=== PATIENT | female | born 1965 | race Caucasian/White ===

== ENCOUNTER 2016-03-17 23:09 | Emergency (ER) | payer SELFPAY ==
[2016-03-17] MEDS ORDERED: Magnesium Sulfate 2 GM/100 ML BAG ONE (23:53)
[2016-03-18] MEDS ORDERED: diphenhydrAMINE HCl 50 MG/ML 1 ML VIAL ONE (00:08)
[2016-03-18] MEDS ORDERED: Ketorolac Tromethamine 30 MG/ML VIAL ONE (00:08)
[2016-03-18] MEDS ORDERED: Metoclopramide HCl 10 MG/2 ML VIAL ONE (00:08)
--- NOTE | 2016-03-18 01:40 | ERRECORD ---
[facility] EMERGENCY RECORD HPI HEADACHE (23:36 DHAM) CHIEF COMPLAINT: Patient presents for evaluation of migraine headache. HISTORIAN: History provided by patient, History provided by patient's spouse, . LOCATION: Symptoms are localized, most severe in the left orthodoxy, this is where her migraines usually are located. QUALITY: Pain is dull in nature, described as throbbing. SEVERITY: Maximum severity of pain rated as 9/10. TIME COURSE: Gradual onset of symptoms, x 24 hours, There has been no change in the patient's symptoms over time. ASSOCIATED WITH FEMALE: Associated with aura, for 1 hour, currently resolved, No associated chills, No associated fever, No associated focal weakness, No posterior circulation symptoms present, Not associated with , No associated neck pain, No associated trauma, No associated tingling, No associated numbness, No associated upper respiratory infection, seizure today that lasted about a minute. She did not fall. She was able to walk down the [place] with the assistance of her during her "seizure" where she was shaking both arms and both legs. She has been out of her phenobarbital for about a week or two. her usual aura is flashing lights across her vision. EXACERBATED BY: Patient's condition exacerbated by light. RELIEVED BY: Patient's condition relieved by botox injections had been helping. RISK FACTORS: Subarachnoid hemorrhage risk factors, not applicable for this patient, Subarachnoid hemorrahage risk factor analysis completed. ROS (23:47 DHAM) CONSTITUTIONAL: Historian denies chills, denies fever, denies lethargy. EYES: Historian denies eye pain, denies eye redness, denies eye discharge, denies itching, reports photophobia, reports vision changes. blurry vision to the left eye which is her usual with her migraines for many years. ENT: Historian denies drooling, denies rhinorrhea, denies sore throat, denies stridor, denies voice changes. CARDIOVASCULAR: Historian denies chest pain, no radiation, Historian denies edema, denies syncope, denies palpitations. RESPIRATORY: Historian denies cough, denies shortness of breath, denies sputum. GI: Historian denies abdominal pain, denies appetite changes, denies diarrhea, reports nausea, denies vomiting. GENITOURINARY FEMALE: Historian denies dysuria, denies frequency. MUSCULOSKELETAL: Historian denies back pain, denies fall, denies injury, denies neck pain. SKIN: Historian denies rash, denies skin changes, denies skin lesions. NEUROLOGIC: Historian denies focal weakness, reports &a-1R&a+25V*p+0X*k0529X*c202B*c15G*c2P*p-0X&a-25V&a+1R Name: Olga Hernandez : 1965 F50 MedRec: [id number] AcctNum: [id number] Prepared: WedMar 18, 2016 08:57 by Interface Page 1 of 6 pMD [facility] EMERGENCY RECORD headache, denies mental status changes, denies paralysis, denies paresthesias, reports seizures, denies sensory changes, denies speech changes. 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 "seizures" off and on for many years. ENDOCRINE: Historian denies polydipsia, denies polyuria. HEMO/LYMPHATIC: Historian denies abnormal blood clotting, denies easy bruising. ALLERGIC/IMMUNOLOGIC: Historian denies eczema, denies hives. PSYCHIATRIC: Historian reports anxiety. KNOWN ALLERGIES CLINDAMYCIN CODEINE CONTRAST DYE ERRYTHROMYCIN KLOR-CON PENICILLIN SULFUR TETRACYCLINE THORAZINE URSODOL VALIUM VENLAFAXINE CURRENT MEDICATIONS Imitrex: TABLET : Strength - 100 mg : ORAL Patient Dose: 100 mg Oral As Needed.TAKE 1 AT ONSET OF MERCHANT, REPEAT IN 2 HOURS. (WedMar 18, 2016 00:04 AADK) albuterol: AEROSOL (GRAM) : Strength - 90 mcg : INHALATION Patient Dose: 2 puff(s) Inhaler every 4 hours. (WedMar 18, 2016 00:05 AADK) albuterol sulfate: VIAL, NEBULIZER (ML) : Strength - 2.5 mg/3 mL (0.083 %) : INHALATION Patient Dose: 1 ea Nebulize every 4 hours. (WedMar 18, 2016 00:05 AADK) tiZANidine: CAPSULE : Strength - 4 mg : ORAL Patient Dose: 1 tab(s) Oral once a day (at bedtime). (WedMar 18, 2016 00:06 AADK) ALPRAZolam: TABLET : Strength - 1 mg : ORAL Patient Dose: 1 tab(s) Oral 3 times a day. (WedMar 18, 2016 00:07 AADK) propranolol: CAPSULE, EXTENDED RELEASE 24HR : Strength - 80 mg : ORAL Patient Dose: 2 cap(s) Oral once a day. (WedMar 18, 2016 00:07 AADK) &a-1R&a+25V*p+0X*j7985K*c202B*c15G*c2P*p-0X&a-25V&a+1R Name: Olga Hernandez : 1965 F50 MedRec: [id number] AcctNum: [id number] Prepared: WedMar 18, 2016 08:57 by Interface Page 2 of 6 pMD [facility] EMERGENCY RECORD primidone: TABLET : Strength - 50 mg : ORAL Patient Dose: 50 mg Oral once a day (at bedtime). (WedMar 18, 2016 00:08 AADK) nabumetone: TABLET : Strength - 500 mg : ORAL Patient Dose: 1 tab(s) Oral 2 times a day. (WedMar 18, 2016 00:08 AADK) topiramate: TABLET : Strength - 100 mg : ORAL Patient Dose: 1 tab(s) Oral 2 times a day. (WedMar 18, 2016 00:08 AADK) levETIRAcetam: TABLET : Strength - 500 mg : ORAL Patient Dose: 1 tab(s) Oral 2 times a day. (WedMar 18, 2016 00:09 AADK) promethazine: TABLET : Strength - 25 mg : ORAL Patient Dose: 25 mg Oral 3 times a day. (WedMar 18, 2016 00:10 AADK) gabapentin: CAPSULE : Strength - 300 mg : ORAL Patient Dose: 1 cap(s) Oral 4 times a day. (WedMar 18, 2016 00:10 AADK) PHENobarbital: TABLET : Strength - 64.8 mg : ORAL Patient Dose: 2 tab(s) Oral 2 times a day. (WedMar 18, 2016 00:11 AADK) carvedilol: TABLET : Strength - 25 mg : ORAL Patient Dose: 25 mg Oral 2 times a day. (WedMar 18, 2016 00:11 AADK) zolpidem: TABLET : Strength - 10 mg : ORAL Patient Dose: 1 tab(s) Oral once a day (at bedtime). (WedMar 18, 2016 00:11 AADK) citalopram: TABLET : Strength - 40 mg : ORAL Patient Dose: 40 mg Oral once a day. (WedMar 18, 2016 00:12 AADK) traMADol: TABLET : Strength - 50 mg : ORAL Patient Dose: 1 tab(s) Oral 3 times a day. (WedMar 18, 2016 00:12 AADK) cloNIDine HCl: TABLET : Strength - 0.3 mg : ORAL Patient Dose: 0.3 mg Oral 3 times a day. (WedMar 18, 2016 00:12 AADK) torsemide: TABLET : Strength - 20 mg : ORAL &a-1R&a+25V*p+0X*m6267O*c202B*c15G*c2P*p-0X&a-25V&a+1R Name: Olga Hernandez : 1965 F50 MedRec: [id number] AcctNum: [id number] Prepared: WedMar 18, 2016 08:57 by Interface Page 3 of 6 pMD [facility] EMERGENCY RECORD Patient Dose: 2 tab(s) Oral 3 times a day. (WedMar 18, 2016 00:13 AADK) Delta 3: CAPSULE : ORAL Patient Dose: 2 cap(s) Oral 2 times a day. (WedMar 18, 2016 00:13 AADK) Cozaar: TABLET : Strength - 100 mg : ORAL Patient Dose: 1 tab(s) Oral once a day. (WedMar 18, 2016 00:14 AADK) atorvastatin: TABLET : Strength - 40 mg : ORAL Patient Dose: 40 mg Oral once a day. (WedMar 18, 2016 00:14 AADK) Nitrostat: TABLET, SUBLINGUAL : Strength - 0.4 mg : SUBLINGUAL Patient Dose: 0.4 mg Sublingual As Needed. (WedMar 18, 2016 00:15 AADK) VITAL SIGNS VITAL SIGNS: BP: 203/101, Pulse: 61, Resp: 20, Temp: 97.7 (Oral), Pain: 8, O2 sat: 96 on Room Air, Time: 03/17/2016 23:20. (23:20 MVIL) BP: 153/85, Pulse: 56, Resp: 20, O2 sat: 93 on Room Air, Time: 03/18/2016 00:31. (WedMar 18, 2016 00:31 MVIL) Pain: 7, Time: 03/18/2016 01:20. (WedMar 18, 2016 01:20 AADK) PHYSICAL EXAM (23:53 DHAM) CONSTITUTIONAL: Vital Signs Reviewed, Patient afebrile, Pulse normal, Blood pressure elevated, Respiratory rate normal, Normal pulse oximetry, Patient appears non toxic, Patient appears in mild pain, Patient alert and oriented to person, place and time, Nursing notes reviewed. HEAD: Head exam included findings of head atraumatic, normocephalic. EYES: Fundoscopic exam normal, Eye exam included findings of eyelids normal to inspection, Pupils equally round and reactive to light, Extraocular muscles intact, Conjunctiva normal, Sclera normal, Eye exam included findings of anterior chamber clear. ENT: Ear exam normal, external ear normal, tympanic membranes normal, no foreign body, no drainage, no bleeding, hearing normal, Nose exam normal, no nasal deformity, no bleeding from nares, no bleeding from hypopharynx, no foreign body visualized, no septal hematoma, no septal necrosis, No turbinate mucosa discharge, Pharynx exam normal, not injected, no swelling, symmetrical, Uvula exam normal, midline, no edema, Tonsil exam normal, not enlarged, no exudates, Mouth exam normal, mucous membranes moist, no drooling, no lesions, no lacerations, no tongue elevation, teeth normal, left side of her mouth droops downward and says that is normal for her. she has normal muscle tone in all facial muscles but can not elevate eyebrows on either side (likely due to her botox that she gets in the &a-1R&a+25V*p+0X*i6046L*c202B*c15G*c2P*p-0X&a-25V&a+1R Name: Olga Hernandez : 1965 F50 MedRec: [id number] AcctNum: [id number] Prepared: WedMar 18, 2016 08:57 by Interface Page 4 of 6 pMD [facility] EMERGENCY RECORD forehead. NECK: no meningeal signs, Neck exam included findings of normal range of motion, Trachea midline, Thyroid normal, no meningeal signs, no cervical adenopathy, no tenderness, no contusions, no ecchymosis. RESPIRATORY CHEST: Respiratory exam included findings of no respiratory distress, Breath sounds clear, No wheezing, No rales, No rhonchi, Breath sounds not diminished, Chest exam included findings of chest movement symmetrical. CARDIOVASCULAR: Cardiovascular exam included findings of heart rate regular rate and rhythm, Heart sounds normal, normal S1, normal S2, no murmurs, no rub, no gallop. ABDOMEN FEMALE: Abdominal exam included findings of abdomen nontender, Bowel sounds normal, Liver normal, Spleen normal, no distension, no pulsatile masses, no peritoneal signs, no ventral hernia. BACK: Back exam normal. UPPER EXTREMITY: Upper extremity exam normal, Upper extremity exam included findings of inspection normal, no abrasions, no contusions, no deformity, no lacerations, Range of motion normal, Motor strength normal, Sensation intact, Brachial pulse normal, Radial pulse normal. LOWER EXTREMITY: Lower extremity exam normal, Lower extremity exam included findings of inspection normal, no abrasions, no contusions, no deformity, no lacerations, Range of motion normal, Motor strength normal, Sensation intact, Pedal pulse normal, Pancho's negative, no edema, no calf tenderness. NEURO: Neuro exam findings include patient oriented to person, place and time, Speech normal, Gait normal, [place] coma scale 15, Memory normal, Cranial nerves intact, Deep tendon reflexes normal, no focal motor deficits, no focal sensory deficits. see heent above. Hints neg. nihss is o and pt ambulates normally. SKIN: Skin exam included findings of skin warm, dry, and normal in color, no rash. LYMPHATIC: Lymphatic exam normal, Lymphatic exam included findings of cervical nodes normal. PSYCHIATRIC: Psychiatric exam included findings of patient oriented to person place and time, Affect, flat, Insight normal, Remote memory normal, Recent memory normal, Concentration normal, pt seems anxious and circuitous in her answers. memory seems intact. MEDICATION ADMINISTRATION SUMMARY Drug Name: *Benadryl injection, Dose Ordered: 50 mg, Route: IV Push, Status: Given, Time: 00:14 03/18/2016, Drug Name: *Toradol injection, Dose Ordered: 30 mg, Route: IV Push, Status: Given, Time: 00:14 03/18/2016, Drug Name: *Reglan injection, Dose Ordered: 10 mg, Route: IV Push, Status: Given, Time: 00:14 03/18/2016, &a-1R&a+25V*p+0X*[id number]*c202B*c15G*c2P*p-0X&a-25V&a+1R Name: Olga Hernandez : 1965 F50 MedRec: [id number] AcctNum: [id number] Prepared: WedMar 18, 2016 08:57 by Interface Page 5 of 6 pMD [facility] EMERGENCY RECORD Drug Name: *magnesium sulfate injection, Dose Ordered: 2 g, Route: IV Piggy Back, Status: Given, Time: 23:56 03/17/2016, *Additional information available in notes, Detailed record available in Medication Service section. DOCTOR NOTES (WedMar 18, 2016 01:09 DHAM) TEXT: Pt says that her headache "is easing" but still relates a pain scale of 7/10. her mental status is sharp. will d/c home and have her fill her propranolol and topimax tomorrow to prevent migraines. she tells me she is having trouble paying for her meds but she has refills of all of her meds at the pharmacy. PROBLEM LIST No recorded problems DIAGNOSIS (WedMar 18, 2016 01:11 DHAM) FINAL: PRIMARY: Migraine (unspecified). PRESCRIPTION No recorded prescriptions DISPOSITION PATIENT: Disposition Type: Discharge, Disposition: *Discharge Home. (WedMar 18, 2016 01:11 DHAM) Patient left the department. (WedMar 18, 2016 01:24 MVIL) [place]: AADK=MISA Ortiz, Linette BARRIGA=MD Oneil, Matthias MVIL=MISA Hall, Eleonora &a-1R&a+25V*p+0X*[id number]*c202B*c15G*c2P*p-0X&a-25V&a+1R Name: Olga Hernandez : 1965 F50 MedRec: [id number] AcctNum: [id number] Prepared: WedMar 18, 2016 08:57 by Interface Page 6 of 6 pMD MTDD
--- NOTE | 2016-03-18 01:51 | PICIS ---
[facility] EMERGENCY RECORD TRIAGE (WedMar 17, 2016 23:23 MVIL) TRIAGE NOTES: C/O MIGRAINE HEADACHE SINCE YESTERDAY EVENING. LAST TOOK ADVIL FOR MIGRAINES AT 3PM. ALSO C/O SEIZURE EPISODE AT 2:30PM, WITNESSED BY , LASTING 1MIN. PATIENT RAN OUT OF PHENOBARBITOL. LAST TOOK MED 1 WEEK AGO. (WedMar 17, 2016 23:23 MVIL) PATIENT: AGE: 50, GENDER: female, : Wed1965, TIME OF GREET: WedMar 17, 2016 23:09, PREFERRED LANGUAGE: Maori, ETHNICITY: Not or , ECODE BILLING MAP: [facility] ER, KG WEIGHT: 85.28, HEIGHT/LENGTH: 172.72cm, BMI: 28.58, , , PERSON ID: [id number], PCP: EFFIE. (WedMar 17, 2016 23:23 MVIL) NAME: Olga Hernandez, Zip Code: [address], PHONE: , PAYMENT: [employer] Self Pay. (23:52) COMPLAINT: MIGRAINES. (WedMar 17, 2016 23:23 MVIL) ADMISSION: URGENCY: 3 Urgent, ADMISSION SOURCE: Home, TRANSPORT: CAR, BED: ER -03. (WedMar 17, 2016 23:23 MVIL) ASSESSMENT: Assessment: C/O MIGRAINE HEADACHE SINCE YESTERDAY EVENING. LAST TOOK ADVIL FOR MIGRAINES AT 3PM TODAY. ALSO C/O SEIZURE EPISODE AT 2:30PM WITNESSED BY LASTING 1 MIN. PATIENT STATES LAST TOOK PHENOBARBITOL MED 1 WEEK AGO DUE TO LACK OF INSURANCE., Symptoms began 03/17/2016 23:30, Symptoms began greater than 1 week ago. (23:33 MVIL) PAIN: Patient complains of pain described as, aching, on a scale 0-10 patient rates pain as 8, Location HEAD, Pain is constant. (23:33 MVIL) IMMUNIZATIONS: Flu vaccine not up to date, Tetanus immunization up to date, Pneumococcal vaccine not up to date. (23:33 MVIL) SIRS SCORING: Heart Rate 55-109 (0), Temp range 96.8-101.1 (0), respiratory rate 12-24 (0), Mental Status altered: no (0). (23:33 MVIL) TRIAGE SCREENING: Patient denies suicidal ideation, Patient denies presence of domestic violence. (23:33 MVIL) PROVIDERS: TRIAGE NURSE: Eleonora Hall RN. (WedMar 17, 2016 23:23 MVIL) VITAL SIGNS: BP 203/101, Pulse 61, Resp 20, Temp 97.7, (Oral), Pain 8, O2 Sat 96, on Room Air, Time 03/17/2016 23:20. (23:20 MVIL) KNOWN ALLERGIES CLINDAMYCIN CODEINE CONTRAST DYE ERRYTHROMYCIN KLOR-CON PENICILLIN SULFUR TETRACYCLINE THORAZINE URSODOL &a-1R&a+25V*p+0X*c2952K*c202B*c15G*c2P*p-0X&a-25V&a+1R Name: Olga Hernandez : 1965 F50 MedRec: [id number] AcctNum: [id number] Prepared: WedMar 18, 2016 09:03 by Interface Page 1 of 10 pMD [facility] EMERGENCY RECORD VALIUM VENLAFAXINE CURRENT MEDICATIONS Imitrex: TABLET : Strength - 100 mg : ORAL Patient Dose: 100 mg Oral As Needed.TAKE 1 AT ONSET OF MERCHANT, REPEAT IN 2 HOURS. (WedMar 18, 2016 00:04 AADK) albuterol: AEROSOL (GRAM) : Strength - 90 mcg : INHALATION Patient Dose: 2 puff(s) Inhaler every 4 hours. (WedMar 18, 2016 00:05 AADK) albuterol sulfate: VIAL, NEBULIZER (ML) : Strength - 2.5 mg/3 mL (0.083 %) : INHALATION Patient Dose: 1 ea Nebulize every 4 hours. (WedMar 18, 2016 00:05 AADK) tiZANidine: CAPSULE : Strength - 4 mg : ORAL Patient Dose: 1 tab(s) Oral once a day (at bedtime). (WedMar 18, 2016 00:06 AADK) ALPRAZolam: TABLET : Strength - 1 mg : ORAL Patient Dose: 1 tab(s) Oral 3 times a day. (WedMar 18, 2016 00:07 AADK) propranolol: CAPSULE, EXTENDED RELEASE 24HR : Strength - 80 mg : ORAL Patient Dose: 2 cap(s) Oral once a day. (WedMar 18, 2016 00:07 AADK) primidone: TABLET : Strength - 50 mg : ORAL Patient Dose: 50 mg Oral once a day (at bedtime). (WedMar 18, 2016 00:08 AADK) nabumetone: TABLET : Strength - 500 mg : ORAL Patient Dose: 1 tab(s) Oral 2 times a day. (WedMar 18, 2016 00:08 AADK) topiramate: TABLET : Strength - 100 mg : ORAL Patient Dose: 1 tab(s) Oral 2 times a day. (WedMar 18, 2016 00:08 AADK) levETIRAcetam: TABLET : Strength - 500 mg : ORAL Patient Dose: 1 tab(s) Oral 2 times a day. (WedMar 18, 2016 00:09 AADK) promethazine: TABLET : Strength - 25 mg : ORAL Patient Dose: 25 mg Oral 3 times a day. (WedMar 18, 2016 00:10 AADK) gabapentin: CAPSULE : Strength - 300 mg : ORAL &a-1R&a+25V*p+0X*l9242Y*c202B*c15G*c2P*p-0X&a-25V&a+1R Name: Olga Hernandez : 1965 F50 MedRec: [id number] AcctNum: [id number] Prepared: WedMar 18, 2016 09:03 by Interface Page 2 of 10 pMD [facility] EMERGENCY RECORD Patient Dose: 1 cap(s) Oral 4 times a day. (WedMar 18, 2016 00:10 AADK) PHENobarbital: TABLET : Strength - 64.8 mg : ORAL Patient Dose: 2 tab(s) Oral 2 times a day. (WedMar 18, 2016 00:11 AADK) carvedilol: TABLET : Strength - 25 mg : ORAL Patient Dose: 25 mg Oral 2 times a day. (WedMar 18, 2016 00:11 AADK) zolpidem: TABLET : Strength - 10 mg : ORAL Patient Dose: 1 tab(s) Oral once a day (at bedtime). (WedMar 18, 2016 00:11 AADK) citalopram: TABLET : Strength - 40 mg : ORAL Patient Dose: 40 mg Oral once a day. (WedMar 18, 2016 00:12 AADK) traMADol: TABLET : Strength - 50 mg : ORAL Patient Dose: 1 tab(s) Oral 3 times a day. (WedMar 18, 2016 00:12 AADK) cloNIDine HCl: TABLET : Strength - 0.3 mg : ORAL Patient Dose: 0.3 mg Oral 3 times a day. (WedMar 18, 2016 00:12 AADK) torsemide: TABLET : Strength - 20 mg : ORAL Patient Dose: 2 tab(s) Oral 3 times a day. (WedMar 18, 2016 00:13 AADK) [place] 3: CAPSULE : ORAL Patient Dose: 2 cap(s) Oral 2 times a day. (WedMar 18, 2016 00:13 AADK) Cozaar: TABLET : Strength - 100 mg : ORAL Patient Dose: 1 tab(s) Oral once a day. (WedMar 18, 2016 00:14 AADK) atorvastatin: TABLET : Strength - 40 mg : ORAL Patient Dose: 40 mg Oral once a day. (WedMar 18, 2016 00:14 AADK) Nitrostat: TABLET, SUBLINGUAL : Strength - 0.4 mg : SUBLINGUAL Patient Dose: 0.4 mg Sublingual As Needed. (WedMar 18, 2016 00:15 AADK) VITAL SIGNS VITAL SIGNS: BP: 203/101, Pulse: 61, Resp: 20, Temp: 97.7 (Oral), Pain: 8, O2 sat: 96 on Room Air, Time: 03/17/2016 23:20. (23:20 MVIL) &a-1R&a+25V*p+0X*v1877Z*c202B*c15G*c2P*p-0X&a-25V&a+1R Name: Olga Hernandez : 1965 F50 MedRec: [id number] AcctNum: [id number] Prepared: WedMar 18, 2016 09:03 by Interface Page 3 of 10 pMD [facility] EMERGENCY RECORD BP: 153/85, Pulse: 56, Resp: 20, O2 sat: 93 on Room Air, Time: 03/18/2016 00:31. (WedMar 18, 2016 00:31 MVIL) Pain: 7, Time: 03/18/2016 01:20. (WedMar 18, 2016 01:20 AADK) NURSING ASSESSMENT: HEADACHE (WedMar 18, 2016 00:00 MVIL) NURSING DIAGNOSIS: Nursing diagnosis: MIGRAINE, Notes: STARTING YESTERDAY. LAST TOOK ADVIL FOR MIGRAINES AT 8PM TONIGHT. CONSTITUTIONAL: Patient arrives ambulatory, Gait steady, History obtained from patient, Patient appears, anxious, Patient cooperative, Patient alert, Oriented to person, place and time, Skin warm, Skin dry, Skin normal in color, Mucous membranes pink, Mucous membranes moist, Patient, Patient complains of MIGRAINE HEADACHE, SINCE LAST NIGHT. PAIN: aching pain, to the occipital region, Onset of pain 03/17/2016 01:03, on a scale 0-10 patient rates pain as 8, Pain exacerbated by nothing, Nothing has been tried to alleviate the pain. HEADACHE: Headache assessment findings include headache worst of life, history of migraines, Associated with nausea, Precipitating factors include depression. NEURO: Neuro assessment findings include onset of symptoms: 03/17/2016 01:05, Pupils equally round and reactive to light, Left pupil 3 mm in size, Right pupil 3 mm in size, Able to close eyes, Face symmetrical, Speech normal, GCS:, Eye opening: (4) - Spontaneous, Verbal: (5) - Oriented/conversive, Motor: (6) - Obeys commands/Spontaneous, GCS Total: 15. SAFETY: Side rails up, Cart/Stretcher in lowest position, Family at bedside, Call light within reach, Hospital ID band on. NURSING PROCEDURE: DISCHARGE NOTE (WedMar 18, 2016 01:22 MVIL) DISCHARGE: Patient discharged to home, ambulating without assistance, family driving, accompanied by //partner, Summary of Care printed/ provided, Patient requested and was provided an electronic copy of Discharge Instructions, Transition record given to patient, Discharge instructions given to patient, Above person(s) verbalized understanding of discharge instructions and follow-up care. BELONGINGS: Belongings and valuables with patient at time of discharge include:. NURSING PROCEDURE: IV PATIENT IDENITIFIER: Patient actively involved in identification process, Patient's identity verified by patient stating name, Patient's identity verified by hospital ID [email or web address]. (23:55 AADK) IV SITE 1: IV therapy indicated for medication administration, IV established, to the right forearm, using a 20 gauge catheter, in one attempt, IV site prepped with Chlorhexidine, Saline lock established, Flushed with normal saline (mls): 5. (23:55 AADK) FOLLOW-UP SITE 1: IV discontinued, due to patient being &a-1R&a+25V*p+0X*y6553A*c202B*c15G*c2P*p-0X&a-25V&a+1R Name: Olga Hernandez : 1965 F50 MedRec: [id number] AcctNum: [id number] Prepared: WedMar 18, 2016 09:03 by Interface Page 4 of 10 pMD [facility] EMERGENCY RECORD discharged, catheter intact. (WedMar 18, 2016 01:23 MVIL) NURSING PROCEDURE: NURSE NOTES (23:59 AADK) NURSES NOTES: Notes: PT SPOUSE REQUESTED A PILLOW FOR PT TO PUT OVER HER EYES. LIGHTS ARE ALREADY OFF OVER BED #3. INFORMED SPOUSE AND PT WE COULD GIVE A TOWEL FOR HER EYES. PT GIVEN WASHCLOTH, PLACED OVER EYES. PT THANKED NURSE. MEDICATION ADMINISTRATION SUMMARY Drug Name: *Benadryl injection, Dose Ordered: 50 mg, Route: IV Push, Status: Given, Time: 00:14 03/18/2016, Drug Name: *Toradol injection, Dose Ordered: 30 mg, Route: IV Push, Status: Given, Time: 00:14 03/18/2016, Drug Name: *Reglan injection, Dose Ordered: 10 mg, Route: IV Push, Status: Given, Time: 00:14 03/18/2016, Drug Name: *magnesium sulfate injection, Dose Ordered: 2 g, Route: IV Piggy Back, Status: Given, Time: 23:56 03/17/2016, *Additional information available in notes, Detailed record available in Medication Service section. MEDICATION SERVICE Benadryl injection: Order: Benadryl injection (diphenhydramine HCl) - Dose: 50 mg : IV Push Schedule: Now Notes: give second please Ordered by: Matthias Steven MD Entered by: Matthias Steven MD WedMar 17, 2016 23:34 , Acknowledged by: Linette Ortiz RN WedMar 17, 2016 23:58 Documented as given by: Eleonora Hall RN WedMar 18, 2016 00:14 Patient, Medication, Dose, Route and Time verified prior to administration. Amount given: 50MG, IV SITE #1 IVP, initial medication, Catheter placement confirmed via flush prior to administration, IV site without signs or symptoms of infiltration during medication administration, No swelling during administration, No drainage during administration, IV flushed after administration, Correct patient, time, route, dose and medication confirmed prior to administration, Patient advised of actions and side-effects prior to administration, Allergies confirmed and medications reviewed prior to administration, Patient in position of comfort, Side rails up, Cart in lowest position, Family at bedside. Benadryl injection: Response assessment performed, No signs or symptoms of allergic reaction noted, Decreased pain, _IV SITE #1:_, Pain: 7. (WedMar 18, 2016 01:20 AADK) magnesium sulfate injection: Order: magnesium sulfate injection (magnesium sulfate) - Dose: 2 g : IV Piggy Back Schedule: Now Notes: over 20 minutes give first &a-1R&a+25V*p+0X*m6034Z*c202B*c15G*c2P*p-0X&a-25V&a+1R Name: Olga Hernandez Ludivina : 1965 F50 MedRec: [id number] AcctNum: [id number] Prepared: WedMar 18, 2016 09:03 by Interface Page 5 of 10 pMD [facility] EMERGENCY RECORD Ordered by: Matthias Steven MD Entered by: Matthias Steven MD [facility] Mar 17, 2016 23:34 Documented as given by: Linette Ortiz RN [facility] Mar 17, 2016 23:56 Patient, Medication, Dose, Route and Time verified prior to administration. Amount given: 2 GM, IV SITE #1 IVPB or drip, initial infusion, Premixed, via primary tubing, on an IV pump, Connections checked prior to administration, Line traced prior to administration, Catheter placement confirmed via flush prior to administration, IV site without signs or symptoms of infiltration during medication administration, No swelling during administration, No drainage during administration, IV flushed after administration, Correct patient, time, route, dose and medication confirmed prior to administration, Patient advised of actions and side-effects prior to administration, Allergies confirmed and medications reviewed prior to administration, Patient in position of comfort, Side rails up, Cart in lowest position, Family at bedside, Call light in reach, IV PUMP SET AT 300 ML/HR SO MEDICATION WILL INFUSE OVER [address] STEVEN'S ORDER. : Follow Up : Response assessment performed, No signs or symptoms of allergic reaction noted, _IV SITE #1:_, Medication infusion discontinued, on WedMar 18, 2016 00:16, 20 minutes, ., Total amount infused: 100 ML, IV Line flushed after administration. (WedMar 18, 2016 00:16 AADK) Reglan injection: Order: Reglan injection (metoclopramide HCl) - Dose: 10 mg : IV Push Schedule: Now Notes: give third over 10 minutes please in 50 ml bag please Ordered by: Matthias Steven MD Entered by: Matthias Steven MD WedMar 17, 2016 23:34 , Acknowledged by: Linette Ortiz RN WedMar 17, 2016 23:59 Documented as given by: Eleonora Hall RN WedMar 18, 2016 00:14 Patient, Medication, Dose, Route and Time verified prior to administration. Amount given: 10MG, IV SITE #1 IVP, initial medication, Slowly, Catheter placement confirmed via flush prior to administration, IV site without signs or symptoms of infiltration during medication administration, No swelling during administration, No drainage during administration, IV flushed after administration, Correct patient, time, route, dose and medication confirmed prior to administration, Patient advised of actions and side-effects prior to administration, Allergies confirmed and medications reviewed prior to administration, Patient in position of comfort, Side rails up, Cart in lowest position, Family at bedside. : Follow Up : Response assessment performed, No signs or symptoms of allergic reaction noted, _IV SITE #1:_, IV fluid infusion discontinued, on WedMar 18, 2016 00:30, 20 minutes, ., Total amount infused: 100ML, IV Discontinued with catheter intact. (WedMar 18, 2016 01:26 MVIL) Toradol injection: Order: Toradol injection (ketorolac &a-1R&a+25V*p+0X*a1499D*c202B*c15G*c2P*p-0X&a-25V&a+1R Name: Olga Hernandez Ludivina : 1965 F50 MedRec: [id number] AcctNum: [id number] Prepared: WedMar 18, 2016 09:03 by Interface Page 6 of 10 pMD [facility] EMERGENCY RECORD tromethamine) - Dose: 30 mg : IV Push Schedule: Now Notes: give 4th please Ordered by: Matthias Steven MD Entered by: Matthias Steven MD [facility] Mar 17, 2016 23:34 , Acknowledged by: Linette Ortiz RN [facility] Mar 17, 2016 23:59 Documented as given by: Eleonora Hall RN WedMar 18, 2016 00:14 Patient, Medication, Dose, Route and Time verified prior to administration. Amount given: 30MG, IV SITE #1 IVP, initial medication, Catheter placement confirmed via flush prior to administration, IV site without signs or symptoms of infiltration during medication administration, No swelling during administration, No drainage during administration, IV flushed after administration, Correct patient, time, route, dose and medication confirmed prior to administration, Patient advised of actions and side-effects prior to administration, Allergies confirmed and medications reviewed prior to administration, Patient in position of comfort, Side rails up, Cart in lowest position, Family at bedside. : Follow Up : Response assessment performed, No signs or symptoms of allergic reaction noted, _IV SITE #1:_, Total amount infused: 30MG, IV Discontinued with catheter intact. (WedMar 18, 2016 01:28 MVIL) HPI HEADACHE (23:36 DHAM) CHIEF COMPLAINT: Patient presents for evaluation of migraine headache. HISTORIAN: History provided by patient, History provided by patient's spouse, . LOCATION: Symptoms are localized, most severe in the left scientologist, this is where her migraines usually are located. QUALITY: Pain is dull in nature, described as throbbing. SEVERITY: Maximum severity of pain rated as 9/10. TIME COURSE: Gradual onset of symptoms, x 24 hours, There has been no change in the patient's symptoms over time. ASSOCIATED WITH FEMALE: Associated with aura, for 1 hour, currently resolved, No associated chills, No associated fever, No associated focal weakness, No posterior circulation symptoms present, Not associated with , No associated neck pain, No associated trauma, No associated tingling, No associated numbness, No associated upper respiratory infection, seizure today that lasted about a minute. She did not fall. She was able to walk down the rodriguez with the assistance of her during her "seizure" where she was shaking both arms and both legs. She has been out of her phenobarbital for about a week or two. her usual aura is flashing lights across her vision. EXACERBATED BY: Patient's condition exacerbated by light. RELIEVED BY: Patient's condition relieved by botox injections had been helping. RISK FACTORS: &a-1R&a+25V*p+0X*m2050L*c202B*c15G*c2P*p-0X&a-25V&a+1R Name: Olga Hernandez : 1965 F50 MedRec: [id number] AcctNum: [id number] Prepared: WedMar 18, 2016 09:03 by Interface Page 7 of 10 pMD [facility] EMERGENCY RECORD Subarachnoid hemorrhage risk factors, not applicable for this patient, Subarachnoid hemorrahage risk factor analysis completed. ROS (23:47 DHAM) CONSTITUTIONAL: Historian denies chills, denies fever, denies lethargy. EYES: Historian denies eye pain, denies eye redness, denies eye discharge, denies itching, reports photophobia, reports vision changes. blurry vision to the left eye which is her usual with her migraines for many years. ENT: Historian denies drooling, denies rhinorrhea, denies sore throat, denies stridor, denies voice changes. CARDIOVASCULAR: Historian denies chest pain, no radiation, Historian denies edema, denies syncope, denies palpitations. RESPIRATORY: Historian denies cough, denies shortness of breath, denies sputum. GI: Historian denies abdominal pain, denies appetite changes, denies diarrhea, reports nausea, denies vomiting. GENITOURINARY FEMALE: Historian denies dysuria, denies frequency. MUSCULOSKELETAL: Historian denies back pain, denies fall, denies injury, denies neck pain. SKIN: Historian denies rash, denies skin changes, denies skin lesions. NEUROLOGIC: Historian denies focal weakness, reports headache, denies mental status changes, denies paralysis, denies paresthesias, reports seizures, denies sensory changes, denies speech changes. 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 "seizures" off and on for many years. ENDOCRINE: Historian denies polydipsia, denies polyuria. HEMO/LYMPHATIC: Historian denies abnormal blood clotting, denies easy bruising. ALLERGIC/IMMUNOLOGIC: Historian denies eczema, denies hives. PSYCHIATRIC: Historian reports anxiety. PHYSICAL EXAM (23:53 DHAM) CONSTITUTIONAL: Vital Signs Reviewed, Patient afebrile, Pulse normal, Blood pressure elevated, Respiratory rate normal, Normal pulse oximetry, Patient appears non toxic, Patient appears in mild pain, Patient alert and oriented to person, place and time, Nursing notes reviewed. HEAD: Head exam included findings of head atraumatic, normocephalic. EYES: Fundoscopic exam normal, Eye exam included findings of eyelids normal to inspection, Pupils equally round and reactive to light, Extraocular muscles intact, Conjunctiva normal, Sclera normal, Eye exam included findings of anterior chamber clear. ENT: Ear exam normal, external ear normal, tympanic membranes normal, no foreign body, no drainage, no bleeding, hearing normal, &a-1R&a+25V*p+0X*a6569S*c202B*c15G*c2P*p-0X&a-25V&a+1R Name: Olga Hernandez : 1965 F50 MedRec: [id number] AcctNum: [id number] Prepared: WedMar 18, 2016 09:03 by Interface Page 8 of 10 pMD [facility] EMERGENCY RECORD Nose exam normal, no nasal deformity, no bleeding from nares, no bleeding from hypopharynx, no foreign body visualized, no septal hematoma, no septal necrosis, No turbinate mucosa discharge, Pharynx exam normal, not injected, no swelling, symmetrical, Uvula exam normal, midline, no edema, Tonsil exam normal, not enlarged, no exudates, Mouth exam normal, mucous membranes moist, no drooling, no lesions, no lacerations, no tongue elevation, teeth normal, left side of her mouth droops downward and says that is normal for her. she has normal muscle tone in all facial muscles but can not elevate eyebrows on either side (likely due to her botox that she gets in the forehead. NECK: no meningeal signs, Neck exam included findings of normal range of motion, Trachea midline, Thyroid normal, no meningeal signs, no cervical adenopathy, no tenderness, no contusions, no ecchymosis. RESPIRATORY CHEST: Respiratory exam included findings of no respiratory distress, Breath sounds clear, No wheezing, No rales, No rhonchi, Breath sounds not diminished, Chest exam included findings of chest movement symmetrical. CARDIOVASCULAR: Cardiovascular exam included findings of heart rate regular rate and rhythm, Heart sounds normal, normal S1, normal S2, no murmurs, no rub, no gallop. ABDOMEN FEMALE: Abdominal exam included findings of abdomen nontender, Bowel sounds normal, Liver normal, Spleen normal, no distension, no pulsatile masses, no peritoneal signs, no ventral hernia. BACK: Back exam normal. UPPER EXTREMITY: Upper extremity exam normal, Upper extremity exam included findings of inspection normal, no abrasions, no contusions, no deformity, no lacerations, Range of motion normal, Motor strength normal, Sensation intact, Brachial pulse normal, Radial pulse normal. LOWER EXTREMITY: Lower extremity exam normal, Lower extremity exam included findings of inspection normal, no abrasions, no contusions, no deformity, no lacerations, Range of motion normal, Motor strength normal, Sensation intact, Pedal pulse normal, Apncho's negative, no edema, no calf tenderness. NEURO: Neuro exam findings include patient oriented to person, place and time, Speech normal, Gait normal, [place] coma scale 15, Memory normal, Cranial nerves intact, Deep tendon reflexes normal, no focal motor deficits, no focal sensory deficits. see heent above. Hints neg. nihss is o and pt ambulates normally. SKIN: Skin exam included findings of skin warm, dry, and normal in color, no rash. LYMPHATIC: Lymphatic exam normal, Lymphatic exam included findings of cervical nodes normal. PSYCHIATRIC: Psychiatric exam included findings of patient oriented to person place and time, Affect, flat, Insight normal, Remote memory normal, Recent memory normal, Concentration normal, pt seems anxious and circuitous in her &a-1R&a+25V*p+0X*e5027R*c202B*c15G*c2P*p-0X&a-25V&a+1R Name: Olga Hernandez : 1965 F50 MedRec: [id number] AcctNum: [id number] Prepared: WedMar 18, 2016 09:03 by Interface Page 9 of 10 pMD [facility] EMERGENCY RECORD answers. memory seems intact. EVENTS TRANSFER: Triage to Emergency Emergency Room -03. (WedMar 17, 2016 23:23 MVIL) Removed from Emergency Emergency Room -03. (WedMar 18, 2016 01:24 MVIL) O2SAT INTERPRETATION (WedMar 18, 2016 00:01 DHAM) O2SAT: Single pulse oximetry, Oxygen saturation 96%, on room air, Oxygen saturation interpretation: Normal, No intervention required. DOCTOR NOTES (WedMar 18, 2016 01:09 DHAM) TEXT: Pt says that her headache "is easing" but still relates a pain scale of 7/10. her mental status is sharp. will d/c home and have her fill her propranolol and topimax tomorrow to prevent migraines. she tells me she is having trouble paying for her meds but she has refills of all of her meds at the pharmacy. PROBLEM LIST No recorded problems DIAGNOSIS (WedMar 18, 2016 01:11 DHAM) FINAL: PRIMARY: Migraine (unspecified). DISPOSITION PATIENT: Disposition Type: Discharge, Disposition: *Discharge Home. (WedMar 18, 2016 01:11 DHAM) Patient left the department. (WedMar 18, 2016 01:24 MVIL) INSTRUCTION (WedMar 18, 2016 01:15 DHAM) DISCHARGE: MIGRAINE HEADACHE. SPECIAL: Please fill your propranolol and topiramate at the pharmacy to prevent migraines and maybe your phenobarbital to prevent seizures. See your pcp in 24-48 hours to discuss your medicines. Return for any concerns. PRESCRIPTION No recorded prescriptions IMAGING (WedMar 18, 2016 01:23 AADK) *DISCHARGE INSTRUCTIONS RECEIPT: Image captured from scanner. *SUPPLY CHARGE SHEET: Image captured from scanner. ADMIN (WedMar 18, 2016 08:56 DHAM) DIGITAL SIGNATURE: MD Steven Darren. [place]: AADK=MISA Ortiz, Linette [facility]=MD Steven Darren MVIL=MISA Hall, Eleonora &a-1R&a+25V*p+0X*[id number]*c202B*c15G*c2P*p-0X&a-25V&a+1R Name: Olga Hernandez : 1965 [id number] MedRec: [id number] AcctNum: [id number] Prepared: Lolis Mar 18, 2016 09:03 by Interface Page 10 of 10 pMLudivina VILCHIS
== END 2016-03-18 01:22 | disposition home or self-care (01) ==
LOC: BURERS 23:09
DX: G43.909 Migraine, unspecified, not intractable, without status migrainosus (principal)
CPT/HCPCS: 96365; 96375; J1200; J1885; J2765; J3475

== ENCOUNTER 2017-06-20 12:30 | Emergency (ER) | payer SELFPAY ==
[2017-06-20] MEDS ORDERED: Lorazepam 2 MG/ML VIAL ONE ×2 (13:15→13:51)
[2017-06-20 13:28] LABS: #Basophils 0.1 thou/uL (0.0-0.2); #Eosinphils 0.2 thou/uL (0.0-0.7); #Lymphocytes 0.8 thou/uL (1.20-3.40); #Monocytes 0.6 thou/uL (0.11-0.59); #Neutrophils 4.8 thou/uL (1.40-6.50); %Basophils 0.9 % (0.0-1.0); %Eosinophils 3.3 % (0.0-10.0); %Lymphocytes 12.3 % (21.0-51.0); %Monocytes 9.5 % (0.0-10.0); %Neutrophils 73.9 % (42.0-75.0); Mean Corpuscular Hemoglobin 27.8 pg (27.0-31.0); Mean Corpuscular Volume 86.7 fl (81.0-99.0); Mean Platelet Volume 6.8 fL (7.4-10.4); Platelet Count 285 thou/uL (130-400); Red Blood Cell (RBC) Count 4.69 mill/uL (4.20-5.40); White Blood Cell (WBC) Count 6.5 thou/uL (4.8-10.8)
[2017-06-20 13:46] LABS: ALT (SGPT) 34 U/L (8-55); AST (SGOT) 24 U/L (5-34); Albumin 4.6 g/dL (3.5-5.0); Alkaline Phosphatase 145 U/L (40-150); Anion Gap 17 mmol/L (10-20); BUN (Urea Nitrogen) 6 mg/dL (7.0-18.7); Bilirubin, Total Less than 0.2 mg/dL (0.2-1.2); Calc. Creatinine Clearance 0 mL/min (70-130); Calcium 9.8 mg/dL (7.8-10.44); Carbon Dioxide 22 mmol/L (22-29); Chloride 105 mmol/L (98-107); Estimated GFR-MDRD Greater than 90; Globulin 3.5 g/dL (2.4-3.5); Glucose 92 mg/dL (70-105); Protein, Total 8.1 g/dL (6.0-8.3); Sodium 140 mmol/L (136-145)
[2017-06-20 13:47] LABS: CKMB 1.1 ng/mL (0-6.6); Troponin I Less than 0.010 ng/mL (< 0.028)
[2017-06-20] MEDS ORDERED: Ketorolac Tromethamine 30 MG/ML VIAL ONE (14:00)
[2017-06-20] MEDS ORDERED: Acetaminophen 325 MG TAB ONE (16:35)
[2017-06-20] MEDS ORDERED: traMADol HCl 50 MG TAB ONE (16:35)
[2017-06-20] MEDS ORDERED: HYDROcodone/Acetaminophen 10/325 mg Tablet ONE (16:38)
[2017-06-20] MEDS ORDERED: Fentanyl 100 MCG/2 ML VIAL ONE (17:32)
--- NOTE | 2017-06-20 20:01 | CT ---
CT OF THE BRAIN WITHOUT CONTRAST: Date: 06-20-17 FINDINGS: The ventricles are normal in size with no shift. No intracranial bleeding or extraaxial hematoma was seen. There is no sign of mass, edema, or stroke. The skull appears intact with no fracture. Sphenoid sinus is clear as are the mastoid air cells. IMPRESSION: No acute intracranial finding. POS: HOME
--- NOTE | 2017-06-20 20:06 | CT ---
CT OF THE CERVICAL SPINE: Date: 06-20-[address] of the cervical spine was performed following trauma. Axial slices were acquired then coron al and sagittal reconstructions were done. FINDINGS: No fracture, dislocation, or disc space narrowing was seen. No traumatic changes were seen at any cer vical level. There is no sign of foraminal or central canal stenosis. The C1-2 dens distance is marcela l and the soft tissues are normal in thickness. There is perhaps a little more deep cervical adenopat hy bilaterally than one sometimes sees, but the finding is very nonspecific and all nodes are under 1 cm in size. IMPRESSION: No evidence of acute traumatic change. POS: HOME
--- NOTE | 2017-06-20 20:07 | RAD ---
LEFT LEG TWO VIEWS: Date: 06-20-17 FINDINGS: No fracture was seen. The tibia and fibula appear intact. There is a bony ossicle along the inferior pole of the patella that appears to be an old injury. IMPRESSION: No acute bony findings. POS: HOME
== END 2017-06-20 18:02 | disposition home or self-care (01) ==
LOC: BURERS 12:30
DX: S09.90XA Unspecified injury of head, initial encounter (principal); G40.909 Epilepsy, unspecified, not intractable, without status epilepticus; I25.10 Atherosclerotic heart disease of native coronary artery without angina pectoris; I10 Essential (primary) hypertension; F17.200 Nicotine dependence, unspecified, uncomplicated; Z79.899 Other long term (current) drug therapy; W18.30XA Fall on same level, unspecified, initial encounter
CPT/HCPCS: 70450; 72125; 80053; 82553; 84484; 85025; 93005; 96374; 96375; 96376; J1885; J2060; J3010

== ENCOUNTER → 2018-03-12 | Emergency (ER) | payer SELFPAY ==
[~2018-03-12] MED LIST: Lidocaine 1% PF 5 ML VIAL ONE; cefTRIAXone\\ROCEPHIN 1 GM VIAL ONE
--- NOTE | 2018-03-12 23:10 | RAD ---
CHEST TWO VIEWS: 03/12/18 The heart is normal in size and the lungs are clear. There is no current sign of pneumonia. No pleura l effusions are seen. Minor degenerative changes are seen in the spine. IMPRESSION: No acute findings. POS: HOME
== END ==
LOC: BURERS 12:15
DX: R05 Cough (principal); G43.909 Migraine, unspecified, not intractable, without status migrainosus; I10 Essential (primary) hypertension; I25.10 Atherosclerotic heart disease of native coronary artery without angina pectoris; E78.5 Hyperlipidemia, unspecified; F41.9 Anxiety disorder, unspecified; F32.9 Major depressive disorder, single episode, unspecified; F17.210 Nicotine dependence, cigarettes, uncomplicated
CPT/HCPCS: 71046; 96372; J0696; J2001

== ENCOUNTER 2018-03-21 20:37 | Emergency (ER) | payer SELFPAY ==
[2018-03-21] MEDS ORDERED: Acetaminophen/Codeine 30-300mg Tablet ONE (21:01)
--- NOTE | 2018-03-21 23:04 | RAD ---
LEFT SHOULDER THREE VIEWS: 03/21/2018 FINDINGS: No fracture, dislocation, or AC joint widening is seen. The visible adjacent ribs appear intact, as does the scapula. IMPRESSION: No acute findings. POS: HOME
== END 2018-03-21 21:40 | disposition home or self-care (01) ==
LOC: BURERS 20:37
DX: S40.012A Contusion of left shoulder, initial encounter (principal); I10 Essential (primary) hypertension; I25.10 Atherosclerotic heart disease of native coronary artery without angina pectoris; F41.9 Anxiety disorder, unspecified; E78.5 Hyperlipidemia, unspecified; F32.9 Major depressive disorder, single episode, unspecified; F17.210 Nicotine dependence, cigarettes, uncomplicated; Z79.891 Long term (current) use of opiate analgesic; Z79.899 Other long term (current) drug therapy; Z79.51 Long term (current) use of inhaled steroids; W01.0XXA Fall on same level from slipping, tripping and stumbling without subsequent striking against object, initial encounter

== ENCOUNTER 2018-03-24 05:50 | Emergency (ER) | payer SELFPAY ==
[2018-03-24] MEDS ORDERED: Ketorolac Tromethamine 60 MG/2 ML VIAL ONE (06:20)
--- NOTE | 2018-03-24 09:19 | RAD ---
CHEST 2 VIEWS: DATE: 03/24/2018. FINDINGS: The heart is normal in size and the lungs are clear. No infiltrate or effusion was seen. Comparison with a 03/12/2018 study shows no interval change. The mediastinum appears normal. IMPRESSION: No acute thoracic findings. POS: HOME
== END 2018-03-24 07:14 | disposition home or self-care (01) ==
LOC: BURERS 05:50
DX: S40.012A Contusion of left shoulder, initial encounter (principal); I10 Essential (primary) hypertension; I25.10 Atherosclerotic heart disease of native coronary artery without angina pectoris; E78.5 Hyperlipidemia, unspecified; F41.9 Anxiety disorder, unspecified; F32.9 Major depressive disorder, single episode, unspecified; F17.210 Nicotine dependence, cigarettes, uncomplicated; Z79.51 Long term (current) use of inhaled steroids; Z79.899 Other long term (current) drug therapy; W19.XXXA Unspecified fall, initial encounter
CPT/HCPCS: 71046; 96372; J1885

== ENCOUNTER 2018-03-31 18:20 | Emergency (ER) | payer SELFPAY ==
[2018-03-31] MEDS ORDERED: Nitroglycerin 0.4 MG TAB (25 Tab Bottle) ONE (18:45)
[2018-03-31 19:14] LABS: ALT (SGPT) 34 U/L (8-55); AST (SGOT) 23 U/L (5-34); Albumin 4.5 g/dL (3.5-5.0); Alkaline Phosphatase 135 U/L (40-150); Anion Gap 15 mmol/L (10-20); BUN (Urea Nitrogen) 9 mg/dL (9.8-20.1); Bilirubin, Total Less than 0.2 mg/dL (0.2-1.2); Calc. Creatinine Clearance 0 mL/min (70-130); Calcium 9.5 mg/dL (7.8-10.44); Carbon Dioxide 25 mmol/L (22-29); Chloride 104 mmol/L (98-107); Estimated GFR-MDRD 84; Glucose 130 mg/dL (70-105); Potassium 3.6 mmol/L (3.5-5.1); Protein, Total 7.5 g/dL (6.0-8.3); Sodium 140 mmol/L (136-145)
[2018-03-31 19:23] LABS: Eosinophils 4 % (0-10); Hemoglobin 12.8 g/dL (12.0-16.0); Lymphocytes 29 % (21-51); MDiff Complete? YES; Mean Corpuscular HGB CONC 31.8 g/dL (32.0-36.0); Mean Platelet Volume 8.1 fL (7.4-10.4); Monocytes 5 % (0-10); Neutrophil 62 % (42-75); Platelet Count 268 thou/uL (130-400); RBC Distribution Width 15.1 % (11.5-14.5); Red Blood Cell (RBC) Count 4.57 mill/uL (4.20-5.40); White Blood Cell (WBC) Count 8.9 thou/uL (4.8-10.8)
[2018-03-31] MEDS ORDERED: Acetaminophen 500 MG TAB ONE (20:13)
[2018-03-31] MEDS ORDERED: Lorazepam 0.5 MG TAB ONE (20:13)
--- NOTE | 2018-03-31 21:07 | RAD ---
PORTABLE CHEST: 03/31/18 An AP portable film at 1839 is compared with a 03/24 study. The heart remains normal in size and the l ungs are clear. There is no congestion, edema, or pleural effusion. IMPRESSION: No acute finding. POS: HOME
== END 2018-03-31 23:00 | disposition home or self-care (01) ==
LOC: BURERS 18:20
DX: R07.2 Precordial pain (principal); F41.9 Anxiety disorder, unspecified; I10 Essential (primary) hypertension; I25.10 Atherosclerotic heart disease of native coronary artery without angina pectoris; E78.00 Pure hypercholesterolemia, unspecified; F32.9 Major depressive disorder, single episode, unspecified; F17.210 Nicotine dependence, cigarettes, uncomplicated; Z79.51 Long term (current) use of inhaled steroids; Z79.899 Other long term (current) drug therapy
CPT/HCPCS: 36415; 71045; 80053; 83880; 84484; 85025; 93005

== ENCOUNTER 2018-06-07 01:08 | Emergency (ER) | payer SELFPAY ==
[2018-06-07] MEDS ORDERED: Ketorolac Tromethamine 30 MG/ML VIAL ONE (01:26)
[2018-06-07] MEDS ORDERED: methylPREDNISolone Sod Succ/PF 125 MG/2 ML VIAL ONE (01:28)
[2018-06-07] MEDS ORDERED: diphenhydrAMINE 50 MG/ML VIAL ONE (01:28)
[2018-06-07] MEDS ORDERED: Metoclopramide HCl 10 MG/2 ML VIAL ONE (01:28)
== END 2018-06-07 02:27 | disposition home or self-care (01) ==
LOC: BURERS 01:08
DX: G43.909 Migraine, unspecified, not intractable, without status migrainosus (principal); I10 Essential (primary) hypertension; I25.10 Atherosclerotic heart disease of native coronary artery without angina pectoris; F41.9 Anxiety disorder, unspecified; F32.9 Major depressive disorder, single episode, unspecified; E78.00 Pure hypercholesterolemia, unspecified; F17.210 Nicotine dependence, cigarettes, uncomplicated; Z79.891 Long term (current) use of opiate analgesic; Z79.899 Other long term (current) drug therapy
CPT/HCPCS: 96361; 96374; 96375; J1200; J1885; J2765; J2930

== ENCOUNTER 2018-08-27 19:27 | Emergency (ER) | payer SELFPAY ==
[2018-08-27] MEDS ORDERED: Ketorolac Tromethamine 30 MG/ML VIAL ONE ×2 (19:45→19:52)
[2018-08-27] MEDS ORDERED: diphenhydrAMINE 50 MG/ML VIAL ONE ×2 (19:45→19:52)
[2018-08-27] MEDS ORDERED: cloNIDine 0.1 MG TAB ONE (19:45)
[2018-08-27 20:18] LABS: #Basophils 0.1 thou/uL (0.0-0.2); #Eosinphils 0.3 thou/uL (0.0-0.7); #Lymphocytes 3.1 thou/uL (1.20-3.40); #Monocytes 0.6 thou/uL (0.11-0.59); %Eosinophils 3.8 % (0.0-10.0); %Lymphocytes 34.1 % (21.0-51.0); %Monocytes 6.4 % (0.0-10.0); %Neutrophils 54.8 % (42.0-75.0); Hemoglobin 13.1 g/dL (12.0-16.0); Mean Corpuscular Hemoglobin 26.6 pg (27.0-31.0); Mean Corpuscular Volume 85.7 fL (78.0-98.0); Mean Platelet Volume 8.7 fL (7.4-10.4); Platelet Count 248 thou/uL (130-400); RBC Distribution Width 14.4 % (11.5-14.5); Red Blood Cell (RBC) Count 4.93 mill/uL (4.20-5.40); White Blood Cell (WBC) Count 9.2 thou/uL (4.8-10.8)
[2018-08-27 20:30] LABS: ALT (SGPT) 13 U/L (8-55); AST (SGOT) 9 U/L (5-34); Albumin 4.2 g/dL (3.5-5.0); Alkaline Phosphatase 95 U/L (40-150); Anion Gap 15 mmol/L (10-20); BUN (Urea Nitrogen) 12 mg/dL (9.8-20.1); Bilirubin, Total Less than 0.2 mg/dL (0.2-1.2); Calc. Creatinine Clearance 0 mL/min (70-130); Calcium 9.7 mg/dL (7.8-10.44); Carbon Dioxide 23 mmol/L (22-29); Chloride 109 mmol/L (98-107); Estimated GFR-MDRD Greater than 90; Globulin 2.7 g/dL (2.4-3.5); Glucose 97 mg/dL (70-105); Potassium 4.3 mmol/L (3.5-5.1); Protein, Total 6.9 g/dL (6.0-8.3); Sodium 143 mmol/L (136-145)
[2018-08-27] MEDS ORDERED: Acetaminophen 500 MG TAB ONE (20:56)
[2018-08-27] MEDS ORDERED: traMADol HCl 50 MG TAB ONE (20:56)
--- NOTE | 2018-08-27 23:33 | RAD ---
PORTABLE CHEST: 08/27/18 An AP portable film at 1952 is compared with a 03/31/18 study. The heart is normal in size and the lungs are clear. No infiltrate or effusion was seen. There is no vascular congestion or edema. Slight prominence of the right hilum is probably due to rotation of the patient. IMPRESSION: No acute thoracic finding. POS: HOME
== END 2018-08-27 21:19 | disposition home or self-care (01) ==
LOC: BURERS 19:27
DX: I10 Essential (primary) hypertension (principal); G43.909 Migraine, unspecified, not intractable, without status migrainosus; J44.9 Chronic obstructive pulmonary disease, unspecified; F41.9 Anxiety disorder, unspecified; F32.9 Major depressive disorder, single episode, unspecified; F17.210 Nicotine dependence, cigarettes, uncomplicated; Z79.899 Other long term (current) drug therapy; Z79.891 Long term (current) use of opiate analgesic
CPT/HCPCS: 36415; 71045; 80053; 84484; 85025; 93005; 96361; 96374; 96375; J1200; J1885

== ENCOUNTER 2019-03-30 20:16 | Emergency (ER) | payer SELFPAY ==
[2019-03-30] MEDS ORDERED: Ketorolac Tromethamine 30 MG/ML VIAL ONE (21:08)
[2019-03-30] MEDS ORDERED: Metoclopramide HCl 10 MG/2 ML VIAL ONE (21:08)
[2019-03-30] MEDS ORDERED: diphenhydrAMINE 50 MG/ML VIAL ONE (21:08)
[2019-03-30 21:11] LABS: #Basophils 0.1 thou/uL (0.0-0.2); #Eosinphils 0.3 thou/uL (0.0-0.7); #Lymphocytes 3.2 thou/uL (1.20-3.40); #Monocytes 0.4 thou/uL (0.11-0.59); #Neutrophils 5.2 thou/uL (1.40-6.50); %Basophils 0.7 % (0.0-1.0); %Eosinophils 3.3 % (0.0-10.0); %Lymphocytes 34.9 % (21.0-51.0); %Monocytes 4.8 % (0.0-10.0); %Neutrophils 56.4 % (42.0-75.0); Hemoglobin 11.2 g/dL (12.0-16.0); Mean Corpuscular HGB CONC 30.2 g/dL (32.0-36.0); Mean Corpuscular Hemoglobin 26.4 pg (27.0-31.0); Mean Corpuscular Volume 87.2 fL (78.0-98.0); Platelet Count 280 thou/uL (130-400); Red Blood Cell (RBC) Count 4.26 mill/uL (4.20-5.40); White Blood Cell (WBC) Count 9.3 thou/uL (4.8-10.8)
[2019-03-30 21:14] LABS: INR-International Normal Ratio 0.9; Prothrombin Time 12.5 SEC (12.0-14.7)
[2019-03-30 21:22] LABS: ALT (SGPT) 17 U/L (8-55); AST (SGOT) 14 U/L (5-34); Albumin 3.8 g/dL (3.5-5.0); Alkaline Phosphatase 97 U/L (40-110); Anion Gap 13 mmol/L (10-20); BUN (Urea Nitrogen) 12 mg/dL (9.8-20.1); Bilirubin, Total Less than 0.2 mg/dL (0.2-1.2); Calc. Creatinine Clearance 0 mL/min (70-130); Calcium 8.4 mg/dL (7.8-10.44); Carbon Dioxide 21 mmol/L (22-29); Chloride 112 mmol/L (98-107); Estimated GFR-MDRD 82; Globulin 2.6 g/dL (2.4-3.5); Glucose 105 mg/dL (70-105); Potassium 3.8 mmol/L (3.5-5.1); Protein, Total 6.4 g/dL (6.0-8.3); Sodium 142 mmol/L (136-145)
[2019-03-30] MEDS ORDERED: Morphine 4 MG/ML VIAL ONE (21:38)
== END 2019-03-30 21:50 | disposition home or self-care (01) ==
LOC: BURERS 20:16
DX: G43.909 Migraine, unspecified, not intractable, without status migrainosus (principal); J44.9 Chronic obstructive pulmonary disease, unspecified; F41.9 Anxiety disorder, unspecified; F32.9 Major depressive disorder, single episode, unspecified; F17.210 Nicotine dependence, cigarettes, uncomplicated; Z79.899 Other long term (current) drug therapy; Z79.891 Long term (current) use of opiate analgesic; Z79.51 Long term (current) use of inhaled steroids
CPT/HCPCS: 80053; 85025; 85610; 93005; 96374; 96375; J1200; J1885; J2270; J2765

== ENCOUNTER 2019-06-21 17:58 | Emergency (ER) | payer BC ==
[2019-06-21] MEDS ORDERED: Ciprofloxacin 500 MG TAB ONE (18:33)
== END 2019-06-21 18:40 | disposition home or self-care (01) ==
LOC: BURERS 17:58
DX: L02.214 Cutaneous abscess of groin (principal); I10 Essential (primary) hypertension; G43.909 Migraine, unspecified, not intractable, without status migrainosus; J44.9 Chronic obstructive pulmonary disease, unspecified; F41.9 Anxiety disorder, unspecified; F32.9 Major depressive disorder, single episode, unspecified; F17.210 Nicotine dependence, cigarettes, uncomplicated; Z79.891 Long term (current) use of opiate analgesic; Z79.899 Other long term (current) drug therapy
CPT/HCPCS: 10060

== ENCOUNTER 2020-02-20 13:56 | Emergency (ER) | payer BC ==
[2020-02-20] MEDS ORDERED: diphenhydrAMINE 50 MG/ML VIAL ONE (14:29)
[2020-02-20] MEDS ORDERED: Metoclopramide HCl 10 MG/2 ML VIAL ONE (14:29)
[2020-02-20 14:50] LABS: #Basophils 0.1 thou/uL (0.0-0.2); #Eosinphils 0.2 thou/uL (0.0-0.7); #Lymphocytes 2.2 thou/uL (1.20-3.40); #Monocytes 0.4 thou/uL (0.11-0.59); #Neutrophils 3.9 thou/uL (1.40-6.50); %Basophils 0.8 % (0.0-1.0); %Eosinophils 3.4 % (0.0-10.0); %Lymphocytes 33.1 % (21.0-51.0); %Monocytes 5.3 % (0.0-10.0); %Neutrophils 57.3 % (42.0-75.0); Hemoglobin 13.1 g/dL (12.0-16.0); Mean Corpuscular HGB CONC 30.4 g/dL (32.0-36.0); Mean Corpuscular Hemoglobin 29.5 pg (27.0-31.0); Mean Corpuscular Volume 97.1 fL (78.0-98.0); Mean Platelet Volume 7.6 fL (7.4-10.4); Platelet Count 273 thou/uL (130-400); RBC Distribution Width 15.1 % (11.5-14.5); Red Blood Cell (RBC) Count 4.44 mill/uL (4.20-5.40); White Blood Cell (WBC) Count 6.8 thou/uL (4.8-10.8)
[2020-02-20 15:06] LABS: Anion Gap 16 mmol/L (10-20); BUN (Urea Nitrogen) 11 mg/dL (9.8-20.1); Calc. Creatinine Clearance 0 mL/min (70-130); Calcium 8.8 mg/dL (7.8-10.44); Carbon Dioxide 25 mmol/L (22-29); Chloride 106 mmol/L (98-107); Glucose 88 mg/dL (70-105); Potassium 4.6 mmol/L (3.5-5.1); Sodium 142 mmol/L (136-145)
[2020-02-20] MEDS ORDERED: Ketorolac Tromethamine 30 MG/ML VIAL ONE (15:18)
== END 2020-02-20 15:15 | disposition home or self-care (01) ==
LOC: BURERS 13:56
DX: G43.909 Migraine, unspecified, not intractable, without status migrainosus (principal); I10 Essential (primary) hypertension; J44.9 Chronic obstructive pulmonary disease, unspecified; F17.210 Nicotine dependence, cigarettes, uncomplicated; Z79.51 Long term (current) use of inhaled steroids; Z79.82 Long term (current) use of aspirin; Z79.899 Other long term (current) drug therapy
CPT/HCPCS: 36415; 80048; 84443; 85025; 96374; 96375; J1200; J1885; J2765